=== PATIENT | female | born 1970 | race Caucasian/White ===

== ENCOUNTER 2016-02-13 22:58 | Emergency (ER) | payer OTHER ==
[2016-02-13 23:24] VITALS: BP 140/91; PULSE 78; TEMP 98.1; BMI 25.4
--- NOTE | 2016-02-13 23:52 | PDOC ---
History of Present Illness - General History Source: Patient Exam Limitations: No Limitations - History of Present Illness Initial Comments: 02/14/16 00:16 The patient is a 45 year old female with no significant past medical history who presents to the ED complaining of several weeks of neck pain radiating down her right upper extremity. Pain is worse with movement of the neck and shoulder and lifting heavy objects. The patient reports she has been following up with her PCP and neurologist for this complaint, but has yet to heavy any imaging of her neck or right upper extremity done. No trauma or injury. No numbnes, tingling, or focal weakness. <Yesenia Baez - Last Filed: 02/14/16 01:07> <Jake Jessica - Last Filed: 02/14/16 01:38> - General Chief Complaint: Pain Stated Complaint: RIGHT SHOULDER AND ARM PAIN Past History <Yesenia Baez - Last Filed: 02/14/16 01:07> - Past Medical History Psychiatric Problems: Yes (ANXIETY, OCD) Suicide Attempt (Hx): No - Immunization History Immunization Up to Date: Yes - Psycho/Social/Smoking Cessation Hx Anxiety: Yes Suicidal Ideation: No Smoking Status: No Smoking History: Never smoked Number of Cigarettes Smoked Daily: 0 Cigars Per Day: 0 Information on smoking cessation initiated: No Hx Alcohol Use: No Drug/Substance Use Hx: No <Jake Jessica - Last Filed: 02/14/16 01:38> - Past Medical History Allergies/Adverse Reactions: Allergies Allergy/AdvReac Type Severity Reaction Status Date / Time clarithromycin [From Biaxin] Allergy Verified 02/14/16 00:12 Home Medications: Ambulatory Orders Asenapine Maleate [Saphris] 5 mg SL DAILY 02/09/15 Duloxetine HCl [Cymbalta] 60 mg PO DAILY 02/09/15 Methocarbamol [Robaxin -] 1,000 mg PO TID #21 tablet 02/09/15 Ondansetron [Zofran *Odt*] 8 mg SL TID #30 od.tablet MDD 3 02/14/16 Oxycodone HCl/Acetaminophen [Percocet 5-325 mg Tablet] 1 - 2 tab PO Q6H #20 tab MDD 4 02/14/16 Review of Systems - Review of Systems Able to Perform ROS?: Yes Comments:: 02/14/16 00:32 GENERAL/CONSTITUTIONAL: No fever or chills. No weakness. HEAD, EYES, EARS, NOSE AND THROAT: No change in vision. No ear pain or discharge. No sore throat CARDIOVASCULAR: No chest pain or shortness of breath. RESPIRATORY: No cough, wheezing, or hemoptysis. GASTROINTESTINAL: No nausea, vomiting, diarrhea or constipation. GENITOURINARY: No dysuria, frequency, or change in urination. MUSCULOSKELETAL: Right neck and shoulder pain. No other joint or muscle swelling or pain. No back pain. SKIN: No rash NEUROLOGIC: No headache, vertigo, loss of consciousness, or change in strength/ sensation. ENDOCRINE: No increased thirst. No abnormal weight change. HEMATOLOGIC/LYMPHATIC: No anemia, easy bleeding, or history of blood clots. ALLERGIC/IMMUNOLOGIC: No hives or skin allergy. <Yesenia Baez - Last Filed: 02/14/16 01:07> *Physical Exam - Vital Signs Last Vital Signs Temp Pulse Resp BP Pulse Ox 98.1 F 78 20 140/91 100 02/13/16 23:21 02/13/16 23:21 02/13/16 23:21 02/13/16 23:21 02/13/16 23:21 - Physical Exam Comments: 02/14/16 00:33 GENERAL: Awake, alert, and fully oriented, in no acute distress HEAD: No signs of trauma EYES: PERRLA, EOMI, sclera anicteric, conjunctiva clear ENT: Auricles normal inspection, hearing grossly normal, nares patent, oropharynx clear without exudates. Moist mucosa NECK: Normal ROM, supple, no lymphadenopathy, JVD, or masses LUNGS: Breath sounds equal, clear to auscultation bilaterally. No wheezes, and no crackles HEART: Regular rate and rhythm, normal S1 and S2, no murmurs, rubs or gallops ABDOMEN: Soft, nontender, normoactive bowel sounds. No guarding, no rebound. No masses EXTREMITIES: Right shoulder: Nontender to palpation. Pain is reproducible with movement of the neck. Sensation intact with no motor deficit. Normal passive ROM , no edema. No clubbing or cyanosis. No cords, erythema, or tenderness. All other extremities: Normal range of motion, no edema. No clubbing or cyanosis. No cords, erythema, or tenderness NEUROLOGICAL: Cranial nerves II through XII grossly intact. Normal speech, normal gait SKIN: Warm, Dry, normal turgor, no rashes or lesions noted. <Yesenia Baez - Last Filed: 02/14/16 01:07> - Vital Signs Last Vital Signs Temp Pulse Resp BP Pulse Ox 98.1 F 78 20 140/91 100 02/13/16 23:21 02/13/16 23:21 02/13/16 23:21 02/13/16 23:21 02/13/16 23:21 <Jake Jessica - Last Filed: 02/14/16 01:38> ED Treatment Course - RADIOLOGY Radiology Studies Ordered: Category Date Time Status CERVICAL SPINE CT W/O CONTR [CT] Stat CT Scan 02/13/16 23:44 Ordered SHOULDER-RIGHT [RAD] Stat Radiology 02/13/16 23:42 Ordered <Jake Jessica - Last Filed: 02/14/16 01:38> Medical Decision Making - Medical Decision Making 02/14/16 01:[address], reviewed and interpreted by [facility]. FINDINGS: There is minimal bulging of the C2-3 and C3-4 discs without significant mass effect. There is a small central herniation of the C4-5 disc without significant mass effect. C5-6 and C6-7 discs demonstrate small bulging disc osteophyte complexes which mildly narrows the central canal and both neural foramina at both levels. There is no fracture, subluxation, prevertebral soft tissue swelling. The lung apices are clear. IMPRESSION: Mild central canal bilateral neural frontal narrowing at C5-6 and C6-7 levels due to bulging disc ossify complexes. Small central C4-5 disc herniation without significant mass effect. THIS DOCUMENT HAS BEEN ELECTRONICALLY SIGNED Jerald Hui MD 02/14/2016 00:26 EST <Yesenia Baez - Last Filed: 02/14/16 01:07> *DC/Admit/Observation/Transfer - Attestations Scribe Attestion: 02/14/16 00:35 Documentation prepared by Yesenia Baez, acting as medical laboratory assistant for Jake Jessica MD. <Yesenia Baez - Last Filed: 02/14/16 01:07> - Discharge Dispostion Admit: No - Attestations Physician Attestion: 02/13/16 23:52 I, Dr. Jake Jessica, attest that this document has been prepared under my direction and personally reviewed by me in its entirety. I further attest, that it accurately reflects all work, treatment, procedures and medical decision -making performed by me. <Jake Jessica - Last Filed: 02/14/16 01:38> Diagnosis at time of Disposition: Cervical radiculopathy at C5, Cervical radiculopathy at C6 - Discharge Dispostion Disposition: HOME Condition at time of disposition: Good - Prescriptions Prescriptions: Oxycodone HCl/Acetaminophen [Percocet 5-325 mg Tablet] 1 - 2 tab PO Q6H #20 tab MDD 4 Ondansetron [Zofran *Odt*] 8 mg SL TID #30 od.tablet MDD 3 - Referrals Referrals: Marko Falk MD [Primary Care Provider] - - Patient Instructions Printed Discharge Instructions: DI for Cervical Radiculopathy Additional Instructions: Christianne- Call Dr. Melton, your neurosurgeon, your answer lies with him. Best- Dr. Jake Jessica
[2016-02-14] MEDS ORDERED: OXYCODONE/APAP 5/325MG COMBO TABLET ONE (00:16)
[2016-02-14] MEDS ORDERED: OXYCODONE/APAP 5/325MG COMBO TABLET PO ONE (00:23)
[2016-02-14] MEDS ORDERED: ONDANSETRON *ODT* 4 MG TABLET ONE (01:03)
--- NOTE | 2016-02-14 12:17 | PDOC ---
Patient Follow-up (Call Back) - Post ED Follow - Up Chief Complaint: Pain, Acute Condition at time of discharge: Good Disposition at time of original discharge: HOME Reason for Call Back: Radiology (xray with ? sclerotic area. left message at 12: 15) - Disposition Additional Instructions/Notes: spoke to patient, explained to patient need to follow up xray. pt has appt at [facility] tomorrow with neurologist and has copy of cd of ct cervical spine and xray of shoulder. will discuss with neurologist and get imaging or be referred to [facility] orthopedist tomorrow. she understand the need to make sure this is not a tumor.
== END 2016-02-14 01:50 | disposition home or self-care (01) ==
LOC: JER 22:58
DX: M54.12 Radiculopathy, cervical region (principal); F41.8 Other specified anxiety disorders
CPT/HCPCS: 72125-TC; 73030-TC-RT; 99282-25

== ENCOUNTER 2016-03-22 05:10 | Inpatient (IN) | payer OTHER ==
[2016-03-21 17:35] VITALS: BMI 24.8
[~2016-03-22 05:10] MED LIST: BACITRACIN 15 GM TUBE TOPICAL OINTMENT TP ONE
[2016-03-22 09:24] LABS: BASOPHIL 0.7 % (0-2.0); EOSINOPHIL 2.7 % (0-4.5); MCH 31.3 pg (25.7-33.7); MCHC 33.7 g/dl (32.0-36.0); MEAN PLT VOLUME 7.7 fl (7.5-11.1); PLATELET COUNT 279 K/MM3 (134-434); RDW 12.6 % (11.6-15.6); WHITE BLOOD COUNT 6.2 K/mm3 (4.0-10.0)
[2016-03-22 11:07] LABS: INR 1.02 (0.82-1.09); PROTHROMBIN TIME (PATIENT) 11.2 SEC (9.98-11.88)
[2016-03-22] MEDS ORDERED: BACITRACIN 15 GM TUBE TOPICAL OINTMENT ONE (11:51)
[2016-03-22] MEDS ORDERED: ceFAZolin SODIUM 1 GM VIAL IVPB ONE (11:55)
[2016-03-22] MEDS ORDERED: THROMBIN (BOVINE) 5,000 UNIT VIAL TP ONE (12:31)
[2016-03-22] MEDS ORDERED: BACITRACIN 50,000 UNITS VIAL TP ONE (12:31)
--- NOTE | 2016-03-22 15:22 | OP ---
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; C5-6 and C6-7 DDD with foramenal and lateral recess narrowing and radiculopathy Operation: Anterior cervical discectomies C4-5, C5-6, C6-7, partial corpectommies C4,5,6,7; interbody fusion C4-5, C5-6, C6-7; anterior instrumentaion C4-7 withe basilio Inv[employer]ia titanium system; interbody implant C4- 5 (7mm), C5-6 (7mm), C6-7 (6mm); microdissection; traction tongs Findings: severe DDD C5-6 and C6-7 with osteophytes and stenosis; C4-5 HNP with cord impingement and stenosis Implants: [employer] 57 mm plate and 14 mm screws B C4-5-6-6 (variable angle C4,5, 6 and fixed angle C7); [employer] 7 mm interbody implants C4-5 and C5-6; and 6 mm at C6-7; Active Barrrier 4 cm x1 Surgeon: Marko Melton) Senior Copywriter: Ramandeep Phillip Anesthesiologist/MDS RN: Gavi Hunt MD Anesthesia: General Specimens Removed: C4-5,C5-6,C6-7 DDD Estimated Blood Loss (mls): 50
[2016-03-22] MEDS ORDERED: ONDANSETRON 4 MG/2 ML VIAL IVPB PRN (15:26)
[2016-03-22] MEDS ORDERED: oxyCODONE HCL 5 MG TABLET PO PRN (15:26)
[2016-03-22] MEDS ORDERED: BACITRACIN 15 GM TUBE TOPICAL OINTMENT TP ONE (15:40)
--- NOTE | 2016-03-22 16:03 | PN ---
Progress Note (short form) - Note Progress Note: NEUROSURGERY In PACU Minimal pain AF, VSS O2 sat 100% Slightly sleepy still Dressing intact Collar applied in OR Moving B UE and LE at least 4/5 and symmetric Intra-op findings including osteopenia d/w daughter by phone EDGER LINER for pain iv abx
[2016-03-22] MEDS ORDERED: HYDROmorphone *PCA* 10MG/50ML DISP.SYRIN PCA ONE (16:28)
[2016-03-22] MEDS: HYDROmorphone *PCA* 10MG/50ML DISP.SYRIN PCA SCH (16:30)
[2016-03-22] MEDS: CEFAZOLIN (PRE-DOCKED) 50 ML IVPB SCH (20:00)
[2016-03-22] MEDS: diazePAM 5 MG TABLET PO SCH (22:32)
[2016-03-22] MEDS: DOCUSATE SODIUM 100 MG CAPSULE (FP) PO SCH (22:32)
[2016-03-23] MEDS: CEFAZOLIN (PRE-DOCKED) 50 ML IVPB SCH (02:17)
[2016-03-23] MEDS: D5-1/2NS+20 MEQ KCL - 1,000 ML IV SCH ×5 (02:17→21:02)
[2016-03-23] MEDS: DOCUSATE SODIUM 100 MG CAPSULE (FP) PO SCH ×3 (05:53→22:14)
[2016-03-23] MEDS: diazePAM 5 MG TABLET PO SCH ×3 (05:54→22:15)
--- NOTE | 2016-03-23 07:43 | PN ---
Progress Note (short form) - Note Progress Note: NEUROSURGERY POD #1 Some intrascapular pain L > R AF, VSS Dressing intact -clean and dry Collar adjusted Moving B UE and LE 5/5 and symmetric - improved Intra-op findings including osteopenia d/w pt C spine- good positions of C4 to C7 implants; mild prevertebral edemas as expected Cont PRODUCTION ADMINISTRATIVE ASSISTANT for pain OOB/PT Incentive spirometry Plan d/s home tomorrow if can tolerate po diet and neurologically stable
--- NOTE | 2016-03-23 09:39 | PN ---
Progress Note (short form) - Note Progress Note: Anesthesia POD#1 S/P Anterior Cervical decompression under GA and ENGINEERING PRODUCTION LIAISON for POST/op Patient sitting,started liquids, felt nausea,got medication for that. Pain is controlled with Dilaudid ENGINEERING PRODUCTION LIAISON. pain score is 8-9. VSS A/P Continue ENGINEERING PRODUCTION LIAISON for today.Sore throat should recover spontaneously. Patient is explained and agreed. Bere Chino..
[2016-03-23] MEDS ORDERED: DULoxetine HCL 60 MG CAPSULE.DR PO SCH (10:00)
[2016-03-23] MEDS: HYDROmorphone *PCA* 10MG/50ML DISP.SYRIN PCA SCH ×2 (10:17→17:04)
[2016-03-23] MEDS: LOSARTAN POTASSIUM 50 MG TABLET (FP) PO SCH (10:25)
[2016-03-23] MEDS: DULoxetine HCL 30 MG CAPSULE.DR (FP) PO SCH (10:25)
[2016-03-24] MEDS: diazePAM 5 MG TABLET PO SCH (06:02)
[2016-03-24] MEDS: DOCUSATE SODIUM 100 MG CAPSULE (FP) PO SCH (06:02)
[2016-03-24 09:02] VITALS: BP 116/70; PULSE 72; TEMP 98.2
[2016-03-24] MEDS: LOSARTAN POTASSIUM 50 MG TABLET (FP) PO SCH (10:42)
[2016-03-24] MEDS: DULoxetine HCL 30 MG CAPSULE.DR (FP) PO SCH (10:42)
--- NOTE | 2016-03-24 12:37 | PATH ---
Surgical Pathology Report Patient Name: DALE SOLIMAN Med. Rec. #: [id number] /Age/Gender: 1970 (Age: 45) / F Account: [id number] Location[facility] MED/SURG Taken: 03/23/2016 Received: 03/23/2016 Reported: 03/24/2016 Physicians: Senia Candelaria M.D. Specimen(s) Received 4-5-5-6 6-7 DISC Clinical History Spinal stenosis, cervical spine disc herniation Final Diagnosis INTERVERTEBRAL DISC, C4-5 C5-6 C6-7, PARTIAL EXCISION: PORTIONS OF INTERVERTEBRAL DISC, AND SMALL FRAGMENTS OF BONE. Electronically Signed Pedro Rodriguez M.D. Gross Description Received in formalin labelled "4-5 5-6 6-7 disc" is a 2.5 x 2.5 x 0.5 cm aggregate of hsieh and vaughan tissue fragments. A safety representative portion is submitted in one cassette. [facility]/03/23/2016 [facility]/03/23/2016
--- NOTE | 2016-03-24 12:41 | PN ---
Progress Note (short form) - Note Progress Note: Post op day#2.Patient stable and c/o pain score 4-5/10.PLASTIC MOLDING OPERATOR is dc and patient put on po pain medication.No any anesthesia related problem.Patient dc from the anesthesia care.
--- NOTE | 2016-03-24 14:12 | OP ---
DATE OF OPERATION: 03/22/2016 PREOPERATIVE DIAGNOSIS: 1. Central disk protrusion at C4-5 with spinal cord impingement and cervical myelopathy. 2. Marked degenerative disk disease at C5-6 and C6-7 with foraminal stenosis, lateral recess stenosis, and cervical radiculopathy. POSTOPERATIVE DIAGNOSIS: 1. Central disk protrusion at C4-5 with spinal cord impingement and cervical myelopathy. 2. Marked degenerative disk disease at C5-6 and C6-7 with foraminal stenosis, lateral recess stenosis, and cervical radiculopathy. ATTENDING SURGEON: Marko Melton MD CO-SURGEON: Michael Orr MD ANESTHESIA: General endotracheal. ANESTHESIOLOGIST: Gavi Hunt MD FABRIC AND TEXTILE FACTORY WORKER: ANTWAN Hutton PROCEDURE: 1. Preoperative replacement and postoperative removal of cranial traction tongs for intraoperative traction and distraction of disk spaces (13997). 2. Anterior cervical microdiskectomy to C4-5, C5-6, and C6-7. 3. Partial corpectomy at C4, C5, C6, and C7 for spinal cord proximal cervical root decompression (09150-66-44, 53231,83015, 11673). 4. Microsurgical dissection with operative microscope and microsurgical techniques (98220). 5. Anterior cervical interbody fusion at C4-5, C5-6, and C6-7 (66891, 80983, and 02691). 6. Utilization of lordotic prosthetic device from [employer] with 7-mm device at C4-5, C5-6, and 6-mm device at C6-7 (15472, 64371-07, and 51561-97). 7. Anterior cervical instrumentation from C4-C7 with Chani spine Invizia titanium system (57-mm plate and 14-mm variable angle screw at C4, C5, C6 bilaterally, and fixed angle 14-mm screw at C7 bilaterally). (35315). FINDINGS: 1. Severe degenerative disk space narrowing at C5-6 and C6-7 with near complete obliteration in the disk spaces. 2. Central disk protrusion with cord impingement at C4-5 level. INDICATION: The patient is a 45-year-old female with intractable worsening neck pain and cervical radiculopathy. More recently, she also developed worsening pain and signs of cervical myelopathy. She has weakness, numbness, paresthesia of her arms as well as decreased dexterity. MRI demonstrated worsening disk herniation at C4- 5 and further progression in degenerative disk space narrowing at C5-6 and C6-7 with foraminal and lateral recess narrowing. She has now consented for multilevel anterior decompression and fusion with instrumentation. The risks of procedure include but are not limited to bleeding, infection, dural tear with CSF leak, neurological injury, increased thromboembolic risks, hoarseness, swallowing difficulties, nonunion, effusion, adjacent level disease, and other risks of general anesthesia. The patient understands indication for the procedure, procedure in detail, risks and benefits and alternative for treatment of her cervical spine condition and wished to proceed with surgery. No guarantee was given for a favorable outcome. Intraoperative SSEP, EMG, and MEP signals were monitored. PROCEDURE IN DETAIL: After patient was taken to the operating room, she was placed in supine position. After general anesthesia was induced, appropriate monitoring lines were placed, cranial traction tongs were applied with bacitracin ointment. No weight was placed until the baseline SSEP, EMG, and MEP signals were obtained. The opening was dictated by Dr. Michael Orr under a separate heading. A short, approximately 2 -inch incision was opened on the left side near the skin crease. The dissection proceeded along the medial to carotid sheath and lateral to the trachea and esophagus. After the prevertebral fascia was skeletonized, the longus colli muscle was reflected laterally, the periosteal elevator coagulated with bipolar cautery. One spinal needle each was inserted into C4-5, C5-6, and C6-7. After the position of the needles were verified, they were removed, and disk space was incised with a No. 15 blade. Two self-retaining radiolucent retractor systems were inserted. The disk material was removed at C4-5, C5-6, and C6-7. At C5-6 and C6-7, disk spaces were extremely narrow, and collapsed. Microscope was brought in at this point for both illumination and magnification. Microsurgical technique was utilized throughout. Partial corpectomy at the bottom of vertebral body of C4 and C5 was carried out to decompress spinal cord and the proximal cervical nerve roots at the C4-5 level. More extensive partial corpectomy was needed at C5, C6, and C7 in order to decompress his spinal cord and cervical roots because of extremely narrow disk space at these levels. After the posterior osteophyte was also burred off, an angled curet was used to resect and separate the posterior longitudinal ligament and they were resected with 2-mm Kerrison rongeur. Bilateral foraminotomy was carried out with angled curet and Kerrison rongeur. This was performed at both C5-6 and C6- 7, as more extensive decompression was needed. After decompression was completed at both C5-6 and C6-7 similarly, attention was turned back to C4-5 level, where bilateral foraminotomy was further extended. The disk space height was sized to be 6 mm at C6-7, 7 mm at C5-6, and 7 mm at C4-5. Interbody implant was first placed at C6- 7. It was a 6-mm [employer] biomechanical device, and countersunk by 1 or 2 mm. Another 7 mm device was placed at C5-6 as was the last 7-mm device at C4-5. All 3 devices were countersunk. Motor-evoked potential remained stable throughout. There was no abnormal or significant EMG activities. A 57-mm Invizia titanium plate was secured with fixation pins, and then 14-mm variable angle screws were used at C4, C5, and C6 bilaterally with medial angle approximately 6 to 8 degrees. At C7, fixed angle screws were used with medial angle approximately 6 degrees. The patient was found to have osteopenia on her vertebral bodies after cortical surface was drilled with high speed pneumatic drill. Screw angulation helped secure the instrumentation to be in excellent positions. A final cervical spine x-ray demonstrated satisfactory position of the implants. The wounds were irrigated with copious amounts of antibiotic- containing irrigation. A piece of 4 x 4 cm ActiveBarrier membrane was layered in the implant after hemostasis was obtained with bipolar electrocautery. The esophagus was inspected as well as carotid sheath and both were in excellent condition. The closure was dictated by Dr. Michael Orr under a separate heading. The patient tolerated procedure well, was extubated in the operating room. The cranial traction tong was removed, and there was no significant bleeding. The traction weight was increased gradually from 0 to 5 to 10 pounds after baseline neuromonitoring signals were obtained. There were no significant signal changes after the application of the traction. The patient received 1 dose of 1 g of Ancef prior to incision as well as 10 mg of dexamethasone. All needle, lap counts were correct. The OR timeout procedure was followed. Senia GUTIERREZ/[id number] cc: Michael Orr MD MTDD
--- NOTE | 2016-03-27 17:08 | SURG ---
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 For further detail, please refer to operative report. Visit type - Case Type Case Type: Scheduled Admission - Emergency Emergency Visit: No - New patient This patient is new to me today: Yes Date on this admission: 03/27/16 - Critical Care Critical Care patient: No
== END 2016-03-24 13:00 | disposition home or self-care (01) | DRG 472 ==
LOC: JSAMEDAYSX 05:10 → EDSTATUS 10:30 → J8W 17:35
PROVIDERS: ADMIT Orthopaedic Surgery; ATTEND Orthopaedic Surgery
PROC: 0RG20J0 Fusion of 2 or more Cervical Vertebral Joints with Synthetic Substitute, Anterior Approach, Anterior Column, Open Approach (ICD-10-PCS; 2016-03-22)
PROC: 00NW0ZZ Release Cervical Spinal Cord, Open Approach (ICD-10-PCS; 2016-03-22)
PROC: 0RG20A0 Fusion of 2 or more Cervical Vertebral Joints with Interbody Fusion Device, Anterior Approach, Anterior Column, Open Approach (ICD-10-PCS; 2016-03-22)
PROC: 0RB30ZZ Excision of Cervical Vertebral Disc, Open Approach (ICD-10-PCS; principal; 2016-03-22 10:30)
DX: M50.021 Cervical disc disorder at C4-C5 level with myelopathy (principal); M47.12 Other spondylosis with myelopathy, cervical region; M50.222 Other cervical disc displacement at C5-C6 level; M50.223 Other cervical disc displacement at C6-C7 level; M48.02 Spinal stenosis, cervical region; M54.12 Radiculopathy, cervical region; I10 Essential (primary) hypertension
CPT/HCPCS: 36415; 72050-TC; 84703; 85025; 85610; 85730; 86850; 86900; 86901; 88304-TC; 94010; 94760; 97116-GP; 97161-GP

== ENCOUNTER 2016-12-27 13:17 | Emergency (ER) | payer OTHER ==
[2016-12-27 13:23] VITALS: BP 148/81; PULSE 77; TEMP 98.1; BMI 25.9
--- NOTE | 2016-12-27 14:25 | PDOC ---
History of Present Illness - General Chief Complaint: Allergic Reaction Stated Complaint: ALLERGIC RXN Time Seen by Provider: 12/27/16 14:06 History Source: Patient Exam Limitations: No Limitations - History of Present Illness Initial Comments: 12/27/16 14:51 Patient is a [46-year-old female, fusion in March, anxiety, OCD. Patient states that she started taking a Medrol Dosepak yesterday and started to have redness to face and upper chest today. Patient denies any respiratory difficulty , no rash, no itching. No respiratory difficulty. No difficulty swallowing.] Allergies: Erythromycin, morphine Medications: [See medication list] Family History: Non-contributory Social History: Denies smoking, alcohol use, or IVDU Review of Systems GENERAL/CONSTITUTIONAL: [No fever or chills. No weakness. No weight change.] HEAD, EYES, EARS, NOSE AND THROAT: [No change in vision. No ear pain or discharge. No sore throat. ] CARDIOVASCULAR: [No chest pain or shortness of breath.] RESPIRATORY: [No cough, wheezing, or hemoptysis.] GASTROINTESTINAL: [No nausea, vomiting, diarrhea or constipation. No rectal bleeding.] GENITOURINARY: [No dysuria, frequency, or change in urination.] MUSCULOSKELETAL: [No joint or muscle swelling or pain. No neck or back pain.] SKIN: [Erythema without warmth or induration to face and upper chest] NEUROLOGIC: [No headache, vertigo, loss of consciousness, or loss of sensation.] PSYCHIATRIC: [No depression or anxiety.] ENDOCRINE: [No increased thirst. No abnormal weight change.] HEMATOLOGIC/LYMPHATIC: [No anemia, easy bleeding, or history of blood clots.] ALLERGIC/IMMUNOLOGIC: [No hives or skin allergy. No latex allergy.] Physical Exam: GENERAL: [The patient is awake, alert, and fully oriented, in no acute distress. ] EYES: [Pupils equal, round and reactive to light, extraocular movements intact, sclera anicteric, conjunctiva clear.] ENT: [Ears normal, nares patent, oropharynx clear without exudates. Moist mucous membranes. No uvula deviation. No Stridor. ] NECK: [Normal range of motion, supple without lymphadenopathy, JVD, or masses.] LUNGS: [Breath sounds equal, clear to auscultation bilaterally. No wheezes, and no crackles.] HEART: [Regular rate and rhythm, normal S1 and S2 without murmur, rub or gallop. ] ABDOMEN: [Soft, nontender, normoactive bowel sounds. No guarding, no rebound. No masses. No bruising or abrasions] MUSCULOSKELETAL: [Normal range of motion, no edema. No clubbing or cyanosis. No cords, erythema, or tenderness. No CVA Tenderness with fist.] NEUROLOGICAL: [Cranial nerves II through XII grossly intact. Normal speech, normal gait.] PSYCH: [Normal mood, normal affect.] SKIN: [Erythema to upper chest and face with no warmth or induration No wheals, . Dry, normal turgor, no rashes or lesions noted.] 12/27/16 19:54 Past History - Past Medical History Allergies/Adverse Reactions: Allergies Allergy/AdvReac Type Severity Reaction Status Date / Time clarithromycin [From Biaxin] Allergy "HIVES" Verified 12/27/16 13:23 morphine Allergy "VOMITING,D Verified 12/27/16 13:23 IZZYNESS" Home Medications: Ambulatory Orders Diazepam [Valium] 5 mg PO BID #10 tablet MDD 2 12/27/16 Gabapentin 300 mg PO ASDIR 12/27/16 Naproxen [Naprosyn -] 500 mg PO BID #20 tablet 12/27/16 Anemia: No Asthma: No Cancer: No Cardiac Disorders: No CVA: No COPD: No CHF: No Dementia: No Diabetes: No GI Disorders: No Disorders: No HTN: No Hypercholesterolemia: No Liver Disease: No Psychiatric Problems: Yes (ANXIETY, OCD) Seizures: No Thyroid Disease: No - Surgical History Abdominal Surgery: (LIPOSUCTION 2013) - Immunization History Immunization Up to Date: Yes - Suicide/Smoking/Psychosocial Hx Smoking Status: No Smoking History: Never smoked Number of Cigarettes Smoked Daily: 0 Cigars Per Day: 0 Hx Alcohol Use: Yes (SOCIAL) Drug/Substance Use Hx: No Substance Use Type: None Hx Substance Use Treatment: No *Physical Exam - Vital Signs Last Vital Signs Temp Pulse Resp BP Pulse Ox 98.1 F 77 20 148/81 99 12/27/16 13:18 12/27/16 13:18 12/27/16 13:18 12/27/16 13:18 12/27/16 13:18 Medical Decision Making - Medical Decision Making 12/27/16 19:55 A/P: Patient here for evaluation of redness to face and upper chest. Flushing. Common side effect of medrol dosepack. Patient is nervous of flushing, told to DC Medrol Dosepak. Will DC patient on Naprosyn and Valium for torticollis which she was being treated for by neurologist. denies any respiratory difficulty, no difficulty swallowing, no rash. Will follow up with neurology in a.m. *DC/Admit/Observation/Transfer Diagnosis at time of Disposition: Flushing reaction - Discharge Dispostion Disposition: HOME Condition at time of disposition: Good Admit: No - Prescriptions Prescriptions: Diazepam [Valium] 5 mg PO BID #10 tablet MDD 2 Naproxen [Naprosyn -] 500 mg PO BID #20 tablet - Referrals Referrals: Marko Falk MD [Primary Care Provider] - - Patient Instructions Printed Discharge Instructions: DI for Adverse Drug Reaction -- Allergic Additional Instructions: Please stop taking the Medrol Dosepak until further discussion with the neurologist Please take Naprosyn and Valium as prescribed for neck pain If any increased pain, numbness tingling or any other concerns return to ER If any Respiratory difficulty, difficulty swallowing, or any other concerns return to ER - Post Discharge Activity Forms/Work/School Notes: Back to Work
== END 2016-12-27 15:18 | disposition home or self-care (01) ==
LOC: JERFT 13:17
DX: R23.2 Flushing (principal); F42.9 Obsessive-compulsive disorder, unspecified; F41.9 Anxiety disorder, unspecified
CPT/HCPCS: 99281-25

== ENCOUNTER 2019-04-01 08:14 | Day surgery (SDC) | payer OTHER ==
[2019-03-28 16:17] VITALS: BMI 25.5
--- NOTE | 2019-04-01 07:40 | HP ---
History & Physical Update - History History: No Change - Physical Physical: No Change - Assessment Assessment: No Change - Plan Plan: No Change (H&P reviwed , no changes)
[2019-04-01] MEDS ORDERED: PROMETHAZINE HCL 25 MG/1 ML VIAL IVPB PRN (08:40)
[2019-04-01] MEDS ORDERED: oxyCODONE HCL 5 MG TABLET PO PRN ×2 (08:40→11:22)
[2019-04-01] MEDS ORDERED: ONDANSETRON 4 MG/2 ML VIAL IVPUSH PRN ×2 (08:40→11:22)
[2019-04-01] MEDS ORDERED: LACTATED RINGERS SOLUTION 1,000 ML IV SCH (08:45)
[2019-04-01] MEDS ORDERED: PROPOFOL 20 ML ONE (10:02)
[2019-04-01] MEDS ORDERED: MIDAZOLAM HCL 2 MG/2 ML SINGLE DOSE VIAL ONE (10:02)
[2019-04-01] MEDS ORDERED: SODIUM CHLORIDE 0.9% P/F 10 ML VIAL IJ ONE (10:03)
[2019-04-01] MEDS ORDERED: ceFAZolin SODIUM 1 GM VIAL ONE (10:03)
[2019-04-01] MEDS ORDERED: LIDOCAINE HCL/PF 2% SDV 5ML VIAL ONE (10:03)
[2019-04-01] MEDS ORDERED: ceFAZolin 2 GRAM PREMIX BAG IVPB ONE (10:15)
[2019-04-01] MEDS ORDERED: ACETAMINOPHEN INJECTION 100 ML IVPB ONE (10:26)
[2019-04-01] MEDS ORDERED: IBUPROFEN 800 MG/8 ML IJ IVPB PRN (11:22)
[2019-04-01] MEDS ORDERED: IBUPROFEN 600 MG TABLET (FP) PO PRN (11:22)
[2019-04-01] MEDS ORDERED: ELECTROLYTE-148 SOLN 1,000 ML IV SCH (11:30)
--- NOTE | 2019-04-01 11:30 | OP ---
Operative Note - Note: Operative Date: 04/01/19 Pre-Operative Diagnosis: EM polyp, menorrhagia Operation: hysteroscopy, D&C , polypectomy Findings: 2 EM polyp ,mid body, one ant. one posterior Post-Operative Diagnosis: Same as Pre-op Surgeon: Paul Morocho Anesthesiologist/FRONT OFFICE CLERK: Gen Louis Anesthesia: General Specimens Removed: endometrial polyp. EMC Estimated Blood Loss (mls): 20 Drains & Tubes with Location: none Blood Volume Replaced (mls): 0 Fluid Volume Replaced (mls): 500 Operative Report Dictated: Yes
[2019-04-01] MEDS ORDERED: IBUPROFEN 800 MG/8 ML IJ IVPB ONE (11:52)
--- NOTE | 2019-04-01 12:39 | OP ---
DATE OF OPERATION: 04/01/2019 PREOPERATIVE DIAGNOSIS: Metrorrhagia, endometrial polyp. POSTOPERATIVE DIAGNOSIS: Metrorrhagia, endometrial polyp. PROCEDURE: Hysteroscopy, dilation and curettage, polypectomy. SURGEON: Paul Morocho MD ANESTHESIA: General. ANESTHESIOLOGIST: Gen Louis MD ESTIMATED BLOOD LOSS: 20 mL. FINDINGS: Two endometrial polyps. DESCRIPTION OF PROCEDURE: Patient was taken to the operating room. Under adequate general anesthesia in dorsal lithotomy position, examination under anesthesia revealed external genitalia to be normal. Vagina was normal. Cervix was clean. No gross lesion. Uterus was anteverted and normal size. Adnexa, no masses were palpable. Then with a weighted speculum in the vagina, anterior lip of the cervix was grasped with a single-tooth tenaculum. Uterine cavity was sounded to 8 cm. Then cervix was slightly dilated with a Hegar dilator then hysteroscope was introduced. Visualization of endocervical canal appeared to be normal. There were 2 polyps seen, 1 anteriorly at mid body of the uterus and the other one posteriorly at the mid body. Both cornual regions were identified. The rest of the endometrium appeared to be atrophic. Then the polyps were removed and then endometrium was curetted in oncology nurse navigator fashion. Patient tolerated procedure well, left the OR in good condition. Senia [id number]
[2019-04-01 13:18] VITALS: TEMP 98.4
[2019-04-01 14:46] VITALS: BP 137/86; PULSE 65
--- NOTE | 2019-04-04 20:09 | PATH ---
Surgical Pathology Report Patient Name: CHRISTIANNE SOLIMAN [facility]. Rec. #: [id number] /Age/Gender: 1970 (Age: 48) / F Account: [id number] Location: [facility] Taken: 04/01/2019 Received: 04/01/2019 Reported: 04/04/2019 Physicians: Paul Morocho M.D. Specimen(s) Received A: ENDOMETRIAL CURETTINGS B: ENDOMETRIAL POLYP Clinical History Endometrial polyp Final Diagnosis A. ENDOMETRIAL CURETTINGS, DILATION AND CURETTAGE: FRAGMENTS OF ENDOMETRIAL POLYP, SECRETORY ENDOMETRIUM, AND BENIGN CERVICAL TISSUE. B. ENDOMETRIAL POLYP, POLYPECTOMY: FRAGMENTS OF ENDOMETRIAL POLYP, SECRETORY ENDOMETRIUM, AND BENIGN CERVICAL TISSUE. Electronically Signed Christianne Moraes M.D. Gross Description A. Received in formalin labeled "endometrial curettings," is a 3.7 x 3.5 x 0.3 cm aggregate of hsieh-brown soft tissue fragments admixed with blood clot. The formalin is filtered and the specimen is entirely submitted in 3 cassettes. B. Received in formalin labeled "endometrial polyp," is a 2.4 x 2.1 x 0.3 cm aggregate of hsieh soft tissue fragments. The formalin is filtered and the specimen is entirely submitted in one cassette. 04/02/2019 [facility]04/02/2019
== END 2019-04-01 14:20 | disposition home or self-care (01) ==
LOC: JASU-SURG 08:14
PROVIDERS: ATTEND Obstetrics & Gynecology
PROC: 0UJD8ZZ Inspection of Uterus and Cervix, Via Natural or Artificial Opening Endoscopic (ICD-10-PCS; 2019-04-01)
PROC: 0UB97ZX Excision of Uterus, Via Natural or Artificial Opening, Diagnostic (ICD-10-PCS; principal; 2019-04-01 10:00)
PROC: 0UDB7ZX Extraction of Endometrium, Via Natural or Artificial Opening, Diagnostic (ICD-10-PCS; 2019-04-01 10:00)
DX: N92.1 Excessive and frequent menstruation with irregular cycle (principal); N84.0 Polyp of corpus uteri
CPT/HCPCS: 84703; 88305-TC; 94760; J0131

== ENCOUNTER 2020-06-01 00:45 | Emergency (ER) | payer OTHER ==
[2020-06-01 00:57] VITALS: BP 110/65; PULSE 58; TEMP 98.6; BMI 22.2
[2020-06-01] MEDS ORDERED: SODIUM CHLORIDE 1,000 ML IV STA (01:21)
[2020-06-01] MEDS ORDERED: ACETAMINOPHEN 1000 MG/100 ML VIAL (NON FORMULARY) IVPB ONE (01:22)
[2020-06-01] MEDS ORDERED: ONDANSETRON 4 MG/2 ML VIAL IVPUSH ONE (01:31)
[2020-06-01] MEDS ORDERED: ONDANSETRON 4 MG/2 ML VIAL ONE (01:33)
[2020-06-01] MEDS ORDERED: ACETAMINOPHEN INJECTION 100 ML IVPB ONE (01:33)
[2020-06-01 01:37] LABS: BASO % 0.6 % (0-2.0); EOS % 1.9 % (0-4.5); HEMOGLOBIN 11.9 GM/dL (10.7-15.3); LYMPH % 19.5 % (8-40); MCHC 34.1 g/dl (32.0-36.0); MEAN CELL VOLUME 93.9 fl (80-96); MONO % 7.8 % (3.8-10.2); NEUT % 70.2 % (42.8-82.8); PLATELET COUNT 205 K/MM3 (134-434); RBC 3.73 M/mm3 (3.60-5.2); RDW 13.4 % (11.6-15.6); WHITE BLOOD COUNT 9.2 K/mm3 (4.0-10.0)
[2020-06-01 01:56] LABS: CHLORIDE 109 mmol/L (98-107); SODIUM 140 mmol/L (136-145)
[2020-06-01 01:58] LABS: CALCIUM 8.6 mg/dL (8.5-10.1)
[2020-06-01 01:59] LABS: ALBUMIN 3.4 g/dl (3.4-5.0); ANION GAP 6 MMOL/L (8-16); CO2 25 mmol/L (21-32); GLUCOSE,RANDOM 106 mg/dL (74-106)
[2020-06-01 02:02] LABS: SGOT/AST 21 U/L (15-37); SGPT/ALT 23 U/L (13-61)
[2020-06-01 02:04] LABS: BILIRUBIN,TOTAL 0.4 mg/dL (0.2-1); TOT PROT 6.4 g/dl (6.4-8.2)
[2020-06-01 02:05] LABS: ALK PHOS 74 U/L (45-117)
[2020-06-01] MEDS ORDERED: DICYCLOMINE HCL 10 MG CAPSULE ONE (02:06)
== END 2020-06-01 02:57 | disposition home or self-care (01) ==
LOC: JER 00:45
PROC: 3E033NZ Introduction of Analgesics, Hypnotics, Sedatives into Peripheral Vein, Percutaneous Approach (ICD-10-PCS; principal; 2020-06-01)
PROC: 3E033GC Introduction of Other Therapeutic Substance into Peripheral Vein, Percutaneous Approach (ICD-10-PCS; 2020-06-01)
PROC: 3E0337Z Introduction of Electrolytic and Water Balance Substance into Peripheral Vein, Percutaneous Approach (ICD-10-PCS; 2020-06-01)
DX: K59.00 Constipation, unspecified (principal)
CPT/HCPCS: 36415; 80053; 84702; 85025; 99285-25; J0131